=== PATIENT | female | born 1940 | race Caucasian/White ===

== ENCOUNTER 2018-10-14 15:01 | Emergency (ER) | payer OTHER ==
[~2018-10-14] VITALS: Ht 154.9 cm; Wt 61.2 kg
[2018-10-14 15:17] VITALS: BP_SYST 114
--- NOTE | 2018-10-14 15:20 | NUR ---
Patient to ER bed 3 to gown for evaluation. Side rails up. Report given to Nahomy EMERY .
--- NOTE | 2018-10-14 15:40 | NUR ---
Patient presented to ER C/O severe low back pain, nausea, blood in BM x 1 month. Patient A&Ox4, ambulatory, arrived to ER via BLS, nausea, vomiting, denies diarrhea, pain 01/05. Patient states she was home when abdominal cramps started, vomited X1, small stool produced with bright red blood. Patient states she was kneeling at toilet at home when pain became severe requiring assistance to stand up, family called 911.
[2018-10-14] MEDS ORDERED: MORPHINE 4 MG/ML INJ. SYRINGE IM ONE (16:00)
[2018-10-14] MEDS ORDERED: HYDR-3606 PO (16:50)
[2018-10-14] MEDS ORDERED: ALBMDI INH (16:50)
[2018-10-14] MEDS ORDERED: SERT-131 PO (16:50)
[2018-10-14] MEDS ORDERED: ATOR20TA64 PO (16:50)
[2018-10-14] MEDS ORDERED: NALO4SPR NS (16:50)
[2018-10-14] MEDS ORDERED: SPIRIVA INH (16:50)
[2018-10-14] MEDS ORDERED: ALPR0.5T PO (16:50)
[2018-10-14] MEDS ORDERED: LEVO25TA7 PO (16:50)
--- NOTE | 2018-10-14 17:05 | NUR ---
ER Dr. Matias at bedside examining patient.
[2018-10-14] MEDS ORDERED: NACL 0.9% 1,000 ML IV ONE (17:09)
[2018-10-14] MEDS ORDERED: ONDANSETRON HCL 4 MG/2 ML VIAL IVP ONE (17:15)
[2018-10-14] MEDS ORDERED: MORPHINE 4 MG/ML INJ. SYRINGE IVP ONE (17:15)
[2018-10-14 17:31] LABS: BASOPHILS # (AUTO) 0.1 K/uL (0.0-0.2); BASOPHILS % (AUTO) 0.6 % (0.0-2.0); EOSINOPHILS % (AUTO) 0.3 % (0.0-4.0); HEMATOCRIT 36.6 % (36-48); HEMOGLOBIN 12.1 g/dL (12.0-16.0); LYMPHOCYTES # (AUTO) 1.4 K/uL (1.0-5.5); LYMPHOCYTES % (AUTO) 9.1 % (20.5-51.5); MEAN CORPUSCULAR HEMOGLOBIN 30 pg (27-31); MEAN CORPUSCULAR HGB CONC 33 % (32-36); MEAN CORPUSCULAR VOLUME 90 fL (79.0-98.0); MONOCYTES # (AUTO) 0.8 K/uL (0.0-1.0); MONOCYTES % (AUTO) 5.2 % (1.7-9.3); NEUTROPHILS # (AUTO) 12.7 K/uL (1.8-7.7); NEUTROPHILS % (AUTO) 84.8 % (40.0-70.0); PLATELET COUNT (AUTO) 359 K/uL (130-430); RED BLOOD CELL COUNT(AUTO) 4.08 MIL/uL (4.2-6.2)
[2018-10-14 17:43] LABS: ANION GAP 14 (5-15); CALCIUM 9.2 mg/dL (8.4-11.0); CHLORIDE 105 mmol/L (98-107); CREATININE 1.77 mg/dL (0.55-1.30); GLUCOSE 112 mg/dL (70-99); POTASSIUM 4.6 mmol/L (3.5-5.1); SODIUM SERUM 135 mmol/L (136-145); UREA NITROGEN, BLOOD 38 mg/dL (8-21)
[2018-10-14 17:47] LABS: ALANINE AMINOTRANSFERASE 28 U/L (12-78); ALBUMIN 3.7 g/dL (3.4-4.8); ASPARTATE AMINOTRANSFERASE 30 U/L (10-37); LIPASE 185 U/L (73-393); TOTAL BILIRUBIN 0.5 mg/dL (0.0-1.0)
[2018-10-14 18:45] VITALS: BP_SYST 120
--- NOTE | 2018-10-14 18:45 | NUR ---
Patient given written and verbal discharge instructions and verbalizes understanding. ER MD discussed with patient the results and treatment provided. Patient in stable condition. ID arm band removed. IV catheter removed intact and dressing applied, no active bleeding. Rx of Trang Lax & Magnesium Citrate given. Patient educated on pain management and to follow up with PMD. Pain Scale 2/10. Opportunity for questions provided and answered. Medication side effect fact sheet provided.
== END 2018-10-14 18:45 | disposition home or self-care (01) ==
LOC: SED 15:01
DX: K59.00 Constipation, unspecified (principal); R19.7 Diarrhea, unspecified; J44.9 Chronic obstructive pulmonary disease, unspecified; I10 Essential (primary) hypertension; F17.210 Nicotine dependence, cigarettes, uncomplicated; Z79.899 Other long term (current) drug therapy; Z91.041 Radiographic dye allergy status
CPT/HCPCS: 36415; 74176; 80053; 81002; 83690; 85025; 96361; 96372; 96374; 96375; 99284; J2270; J2405; J7030